=== PATIENT | female | born 1975 | race Two or more races ===

== ENCOUNTER 2019-02-20 01:55 | Emergency (ER) | payer BC ==
[~2019-02-20] VITALS: Ht 157.5 cm; Wt 106.5 kg
--- NOTE | 2019-02-20 02:21 | NUR ---
PT HAS PILL WITH HER THAT IS HER BLOOD PRESSURE MEDICATION, HAS NOT TAKEN IN 2 DAYS, IN TOWN FROM [place] FOR CONVENTION WITH , LIMITED STATELESS. ONSET HEADACHE AND N/V 2300 TONIGHT. PT HAS PILL SENT TO PHARMACY, IDENTIFIED DIAZIDE 37.5MG/25MG. PT PLACED ON MONITOR, NSR WITHOUT ECTOPY, REMAINS HTN. HEADACHE IS 8/10
[2019-02-20] MEDS ORDERED: DIAZIDE (02:28)
[2019-02-20] MEDS ORDERED: [UNRECOGNIZED DRUG - OTHER] (02:28)
[2019-02-20] MEDS ORDERED: DEXAMETHASONE 4 MG/ML, 1ML IVPush ONE (02:30)
[2019-02-20] MEDS ORDERED: LIDOCAINE-MPF 1%, 5ML INFIL ONE (02:30)
[2019-02-20] MEDS ORDERED: DIPHENHYDRAMINE 50 MG/ML, 1ML IVPush ONE (02:30)
[2019-02-20] MEDS ORDERED: LIDOCAINE 1%, 10ML INFIL ONE (02:30)
[2019-02-20] MEDS ORDERED: METOCLOPRAMIDE 5 MG/ML, 2ML IVPush ONE (02:30)
[2019-02-20] MEDS ORDERED: SODIUM CHLORIDE FLUSH 10ML SYR IVF ONE (02:30)
[2019-02-20] MEDS ORDERED: DIPHENHYDRAMINE 50 MG/ML, 1ML ONE (02:35)
[2019-02-20] MEDS ORDERED: METOCLOPRAMIDE 5 MG/ML, 2ML ONE (02:36)
[2019-02-20] MEDS ORDERED: DEXAMETHASONE 4 MG/ML, 5ML ONE (02:36)
--- NOTE | 2019-02-20 02:42 | NUR ---
LIDOCAINE HELD AT THIS TIME
[2019-02-20] MEDS ORDERED: TRIA1CAP PO (02:48)
--- NOTE | 2019-02-20 02:53 | NUR ---
PT RESTING IN [facility], [place] AT THIS TIME; [place]. PT ATTACHED TO VS MONITORS. CALL LIGHT IS WITHIN REACH. SPOUSE AT BS.
[2019-02-20 03:01] LABS: BASOPHILS # (AUTO) 0.03 x10^3/uL (0-0.1); BASOPHILS % (AUTO) 0 % (0-1); EOSINOPHILS # (AUTO) 0.03 x10^3/uL (0-0.4); EOSINOPHILS % (AUTO) 0 % (1-7); LYMPHOCYTES # (AUTO) 1.48 x10^3/uL (1-3.4); LYMPHOCYTES % (AUTO) 17 % (22-44); MD NO; MEAN CORPUSCULAR HEMOGLOBIN 30.9 pg (27.0-34.8); MEAN CORPUSCULAR VOLUME 90.9 fL (80-100); MEAN PLATELET VOLUME 7.1 fL (7.4-10.4); MONOCYTES # (AUTO) 0.41 x10^3/uL (0.2-0.8); MONOCYTES % (AUTO) 5 % (2-9); NEUTROPHILS # (AUTO) 6.81 x10^3/uL (1.8-6.8); NEUTROPHILS % (AUTO) 78 % (42-75); PLATELET COUNT 206 x10^3/uL (130-400); RED BLOOD COUNT 4.86 x10^6/uL (3.82-5.3); RED CELL DISTRIBUTION WIDTH 13.5 % (9.6-15.2)
[2019-02-20 03:14] LABS: ALANINE AMINOTRANSFERASE 30 U/L (12-78); ALBUMIN 3.4 g/dL (3.4-5.0); ANION GAP 8 mmol/L (5-15); CALCIUM 8.4 mg/dL (8.5-10.1); CHLORIDE 103 mmol/L (98-107); CREATININE 0.76 mg/dL (0.55-1.02)
[2019-02-20 03:18] LABS: ALKALINE PHOSPHATASE 80 U/L (45-117); BILIRUBIN,TOTAL 0.5 mg/dL (0.2-1.0); TOTAL PROTEIN 7.1 g/dL (6.4-8.2); TROPONIN I < 0.015 ng/mL (0.000-0.045)
[2019-02-20 03:26] VITALS: BP 187/108
[2019-02-20] MEDS ORDERED: POTASSIUM CHLORIDE 20 MEQ TAB.ER.PRT PO ONE (03:30)
--- NOTE | 2019-02-20 03:33 | NUR ---
XYLOCAINE HELD DUE TO RESOLUTION OF [place]. ERP AWARE.
[2019-02-20] MEDS ORDERED: POTASSIUM CHLORIDE 20 MEQ TAB.ER.PRT ONE (03:36)
--- NOTE | 2019-02-20 03:43 | NUR ---
PT MEDICATED PER MAR. MEDICAL STUDENT MIGUE AT BS DISCUSSING DISPOSITION WITH PT AT THIS TIME.
--- NOTE | 2019-02-20 04:22 | NUR ---
PT D/C WITH D/C SUMMARY AND SCRIPTS. ALL QUESTIONS ANSWERED. PT AMBULATES TO REGISTRATION DESK WITH STEADY GAIT FOR D/C HOME. PT DENIES ANY OTHER NEEDS PERTAINING TO THIS VISIT. IV ACCESS D/C WITH TIP INTACT.
== END 2019-02-20 04:32 | disposition home or self-care (01) ==
LOC: ED 04:26
DX: G43.C0 Periodic headache syndromes in child or adult, not intractable (principal); I10 Essential (primary) hypertension; E87.6 Hypokalemia
CPT/HCPCS: 36415; 70450; 80053; 84484; 84703; 85025; 93005; 96374; 96375; 99284; J1100; J1200; J2765